=== PATIENT | male | born 1980 | race African-American/Black ===

== ENCOUNTER 2017-05-17 14:31 | Emergency (ER) | payer SELFPAY ==
[~2017-05-17] VITALS: Ht 177.8 cm; Wt 77.1 kg
[~2017-05-17 14:31] MED LIST: KEFLEX500 MG ORAL; NKM; NORCO 5-325 TA1 EACH ORAL; VICODIN 5-5001 EACH PO
[2017-05-17 15:00] VITALS: BP 146/96
[2017-05-17] MEDS ORDERED: CEPHALEXIN500 MG ORAL (15:16)
[2017-05-17] MEDS ORDERED: BACTRIM DS TAB1 EAC1 ORAL (15:16)
[2017-05-17] MEDS ORDERED: IBUPROFEN600 MG ORAL (15:16)
[2017-05-17 15:32] VITALS: BP 146/96
--- NOTE | 2017-05-17 21:09 | Emergency Room Report ---
History of Present Illness General Chief Complaint: Animal Bite Source: Patient Present Illness HPI The patient is a 37 old male presenting for rash of the abdomen. He states that he has been sleeping a new area and noticed for lesions on the abdomen to be insect bites. This occurred 4 days prior and redness and pain have increased. He has also noticed a white discharge. Pain is a 4/10 dull ache and does not radiate. Worse with touch. Denies any other symptoms including N, V, F, chills, diarrhea Allergies: Coded Allergies: No Known Allergies (Unverified , 02/11/13) Patient History Past Medical History: see triage record Pertinent Family History: none Reviewed Nursing Documentation: PMH: Agreed, PSxH: Agreed Review of Systems All Other Systems: negative except mentioned in HPI Physical Exam Vital Signs Date Time Temp Pulse Resp B/P Pulse Ox O2 Delivery O2 Flow Rate FiO2 05/17/17 14:47 98.2 96 15 146/96 99 Room Air Sp02 EP Interpretation: reviewed, normal General Appearance: no apparent distress, alert, GCS 15, non-toxic Head: normocephalic, atraumatic Eyes: bilateral eye PERRL, bilateral eye normal inspection ENT: hearing grossly normal, normal pharynx, no angioedema, normal voice Respiratory: chest non-tender, lungs clear, normal breath sounds, speaking full sentences Cardiovascular #1: regular rate, rhythm, no edema Gastrointestinal: normal bowel sounds, soft, non-distended, no guarding, no rebound, tenderness - over the skin lesions Genitourinary: normal inspection, no CVA tenderness Musculoskeletal: back normal, gait/station normal, normal range of motion, non- tender Neurologic: alert, oriented x3, responsive, motor strength/tone normal, sensory intact, speech normal Psychiatric: judgement/insight normal, memory normal, mood/affect normal, no suicidal/homicidal ideation Skin: rash - \ Lymphatic: no adenopathy Medical Decision Making PA Attestation Dr. Mcmullen is my supervising physician. Patient management was discussed with my supervising physician Diagnostic Impression: Primary Impression: Cellulitis Qualified Codes: L03.90 - Cellulitis, unspecified ER Course The patient is a 37 old male presenting for rash of the abdomen. Differential diagnoses considered but not limited to: abscess, cellulitis, insect bite PE: afebrile. NAD There are 4 circular erythematous lesions of the mid abdomen with central elevation. Indurated. No DC. Tender. The patient will be discharged home a prescription for antibiotics. he is given instructions to return for incision and drainage if indicated. ER precautions given Last Vital Signs Date Time Temp Pulse Resp B/P Pulse Ox O2 Delivery O2 Flow Rate FiO2 05/17/17 15:32 99 15 146/96 99 Room Air 05/17/17 15:00 98.2 Status: improved Disposition: HOME, SELF-CARE Condition: Improved Scripts Trimethoprim/Sulfamethoxazole 160/800* (BACTRIM DS TABLET*) 1 Each Tablet 1 TAB ORAL TWICE A DAY, #14 TAB Prov: FRANCISCA GOEL.A. 05/17/17 Cephalexin* (KEFLEX*) 500 Mg Capsule 500 MG ORAL EVERY 6 HOURS, #28 CAP Prov: FRANCISCA GOEL P.A. 05/17/17 Ibuprofen* (MOTRIN*) 600 Mg Tablet 600 MG ORAL Q8H Y for For Pain, #30 TAB 0 Refills Prov: FRANCISCA GOEL.A. 05/17/17 Referrals: NOT CHOSEN IPA/MD,REFERRING (PCP) Patient Instructions: Cellulitis Additional Instructions: I discussed my findings with the patient. All questions and concerns have been answered. Treatment and medication compliance have been addressed. I advised the patient that they need to follow up with PMD in 3-5 days. Return to ED if symptoms worsen, new symptoms arise, or if needed for any reason. Patient verbalized understanding of discharge instructions. FRANCISCA GOEL May 17, 2017 21:09
== END 2017-05-17 15:20 | disposition home or self-care (01) ==
LOC: EMR 15:15
DX: L03.311 Cellulitis of abdominal wall (principal)
CPT/HCPCS: 99284

== ENCOUNTER 2019-03-17 21:15 | Emergency (ER) | payer MEDICAID ==
[~2019-03-17] VITALS: Ht 177.8 cm; Wt 77.1 kg
[~2019-03-17 21:15] MED LIST changes: +BACTRIM DS TAB1 EAC1 ORAL; +CEPHALEXIN500 MG ORAL; +IBUPROFEN600 MG ORAL
[2019-03-17 22:10] VITALS: BP 137/85
[2019-03-17] MEDS ORDERED: Methocarbamol 750mg tab ORAL ONE (22:15)
[2019-03-17] MEDS ORDERED: Ketorolac 30mg Inj IM ONE (22:15)
--- NOTE | 2019-03-17 22:40 | Diagnostic Imaging Report ---
EXAM: XR Lumbar Spine, 2 or 3 Views CLINICAL HISTORY: PAIN TECHNIQUE: Frontal and lateral views of the lumbar spine. COMPARISON: No relevant prior studies available. FINDINGS: Vertebrae: No acute fracture or malalignment. Disc spaces: No acute findings. No significant narrowing. Soft tissues: Unremarkable. IMPRESSION: No acute fracture or malalignment.
[2019-03-17] MEDS ORDERED: IBUPROFEN600 MG ORAL (23:06)
[2019-03-17] MEDS ORDERED: ROBAXIN-750750 MG PO (23:06)
[2019-03-17 23:10] VITALS: BP 137/85
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
== END 2019-03-17 23:10 | disposition home or self-care (01) ==
LOC: EMR 21:30
DX: M54.5 Low back pain (principal); V18.4XXA Pedal cycle driver injured in noncollision transport accident in traffic accident, initial encounter; Y92.410 Unspecified street and highway as the place of occurrence of the external cause
CPT/HCPCS: 72020; 96372; 99283